=== PATIENT | female | born 2000 | race Caucasian/White ===

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

== ENCOUNTER 2021-02-12 09:28 | Emergency (ER) | payer MEDICAID ==
[2021-02-12 10:38] VITALS: BP 121/65
== END 2021-02-12 10:40 | disposition home or self-care (01) ==
LOC: ED 09:28
DX: S93.402A Sprain of unspecified ligament of left ankle, initial encounter (principal); F17.210 Nicotine dependence, cigarettes, uncomplicated; Z87.81 Personal history of (healed) traumatic fracture; W14.XXXA Fall from tree, initial encounter; Y92.009 Unspecified place in unspecified non-institutional (private) residence as the place of occurrence of the external cause
CPT/HCPCS: L4386

== ENCOUNTER → 2021-05-16 | Outpatient (CLI) | payer MEDICAID | LOC: LAB 16:48 | DX: Z20.822 Contact with and (suspected) exposure to COVID-19 (principal) ==

== ENCOUNTER → 2022-02-28 | Outpatient (CLI) | payer MEDICAID | LOC: LAB 10:52 | DX: J02.9 Acute pharyngitis, unspecified (principal) ==

== ENCOUNTER → 2022-09-11 | Outpatient (CLI) | payer MEDICAID | LOC: LAB 11:53 | DX: Z32.01 Encounter for pregnancy test, result positive (principal); R11.2 Nausea with vomiting, unspecified ==

== ENCOUNTER 2024-05-03 12:18 | Emergency (ER) | payer MEDICAID ==
[~2024-05-03] VITALS: Ht 162.6 cm; Wt 75.3 kg
[~2024-05-03 12:18] MED LIST changes: +PRENATAL FORMU1 EAC2 PO
[2024-05-03 13:35] VITALS: BP 126/73
== END 2024-05-03 13:37 | disposition home or self-care (01) ==
LOC: ED 12:18
DX: Z71.1 Person with feared health complaint in whom no diagnosis is made (principal)